=== PATIENT | male | born 1955 | race Caucasian/White ===

== ENCOUNTER 2019-02-08 14:52 | Emergency (ER) | payer MEDICARE, MEDICAID ==
[~2019-02-08] VITALS: Ht 172.7 cm; Wt 80.0 kg
[~2019-02-08 14:52] MED LIST: ADV50500 IH; ALBU18HF2 IH; CALC-97 PO; CYCL-394 PO; DIT5T PO; FLUT16SP9; HYDR-3686 PO; HYDR20OI TP; MULT1TAB74 PO; OMEP-84 PO; VITC500T PO
[2019-02-08] MEDS ORDERED: acetaminophen 325mg tablet PO ONE (15:00)
[2019-02-08] MEDS ORDERED: CefTRIAXone 2gm/D5W 50ml 50 ML IV ONE (15:25)
[2019-02-08] MEDS ORDERED: normal saline 1000ML IV soln IV ONE (15:25)
[2019-02-08 15:33] LABS: BASOPHILS % (AUTO) 0.5 % (0-1); EOSINOPHILS % (AUTO) 0.4 % (0-6); HEMOGLOBIN 13.8 g/dl (14.0-17.9); LYMPHOCYTES # (AUTO) 0.8 X10'3 (1.1-4.8); LYMPHOCYTES % (AUTO) 10.5 % (21-51); MEAN CORPUSCULAR HEMOGLOBIN 33.3 PG (27.0-31.0); MEAN CORPUSCULAR HGB CONC 34.5 g/dL (33.0-36.5); MEAN CORPUSCULAR VOLUME 96.5 FL (78-98); MEAN PLATELET VOLUME 8.7 FL (7.4-10.4); MONOCYTES # (AUTO) 0.7 X10'3 (0-0.9); MONOCYTES % (AUTO) 9.1 % (2-12); NEUTROPHILS # (AUTO) 5.7 X10'3 (1.8-7.7); NEUTROPHILS % (AUTO) 79.5 % (42-75); PLATELET COUNT 200 X10'3 (140-440); RED BLOOD COUNT 4.14 X10'6 (4.70-6.10); RED CELL DISTRIBUTION WIDTH 13.3 % (11.5-14.5); WHITE BLOOD COUNT 7.2 X10'3 (4.5-11.0)
--- NOTE | 2019-02-08 15:36 | NUR ---
friend contact Cathy cell [phone], home [phone]
[2019-02-08 15:45] LABS: ALANINE AMINOTRANSFERASE 105 U/L (12-78); ALBUMIN 2.8 G/DL (3.4-5.0); ALBUMIN/GLOBULIN RATIO 0.6 (1.1-1.5); ALKALINE PHOSPHATASE 120 IU/L (46-116); ANION GAP 6 (8-16); ASPARTATE AMINO TRANSFERASE 824 U/L (10-37); BILIRUBIN,TOTAL 0.4 MG/DL (0.1-1.0); BLOOD UREA NITROGEN 14 MG/DL (7-18); BUN/CREATININE RATIO 13.1 (5.4-32.0); CALCIUM 8.7 MG/DL (8.5-10.1); CHLORIDE 97 MMOL/L (99-107); CREATININE 1.07 MG/DL (0.60-1.10); GLUCOSE 115 MG/DL (70-104); POTASSIUM 3.2 MMOL/L (3.5-5.1); SODIUM 131 MMOL/L (135-145); TOTAL CARBON DIOXIDE 28.1 MMOL/L (24-32); TOTAL PROTEIN 7.3 G/DL (6.4-8.2); eGFR 70 ML/MIN
[2019-02-08 15:54] LABS: PARTIAL THROMBOPLASTIN TIME 33 SECONDS (22-32)
[2019-02-08 16:11] VITALS: BP 116/70
[2019-02-08] MEDS ORDERED: potassium chloride 8mEq ER tablet PO STA (16:56)
[2019-02-08] MEDS ORDERED: CEPH-572 PO (17:06)
[2019-02-08] MEDS ORDERED: SULF1TAB49 PO (17:06)
[2019-02-08] MEDS ORDERED: sulfamethoxazole/trimethoprim DS (800/160mg) tablet PO ONE (17:15)
== END 2019-02-08 17:48 | disposition home or self-care (01) ==
LOC: ER 14:53
DX: L03.116 Cellulitis of left lower limb (principal); I87.2 Venous insufficiency (chronic) (peripheral); R50.9 Fever, unspecified; F10.20 Alcohol dependence, uncomplicated; J44.9 Chronic obstructive pulmonary disease, unspecified; G89.29 Other chronic pain; Z88.6 Allergy status to analgesic agent; Z79.899 Other long term (current) drug therapy; Y90.9 Presence of alcohol in blood, level not specified
CPT/HCPCS: 36415; 71045; 80053; 83605; 84145; 85025; 85610; 85730; 87040; 96365; 99284; J0696; J7030

== ENCOUNTER 2019-07-01 10:23 | Day surgery (SDC) | payer MEDICARE, MEDICAID ==
[2019-07-01] VITALS (10 sets, daily range): BP systolic 134–150; BP diastolic 77–92
[~2019-07-01] VITALS: Ht 172.7 cm; Wt 79.5 kg
[2019-07-01] MEDS ORDERED: MIDAZolam 5mg/5ml vial ONE (11:42)
[2019-07-01] MEDS ORDERED: LIDOcaine Viscous 15ml cup ONE (11:42)
[2019-07-01] MEDS ORDERED: glucagon, human recombinant 1mg kit ONE (11:42)
[2019-07-01] MEDS ORDERED: fentaNYL/PF 50MCG/1 ML 2ML syringe ONE (11:42)
[2019-07-01] MEDS ORDERED: iohexol 300 MG/1 ML 50ml polymer ONE (11:43)
== END 2019-07-01 13:58 | disposition home or self-care (01) ==
LOC: GI LAB 10:23
PROVIDERS: ATTEND Internal Medicine Gastroenterology
DX: Z46.59 Encounter for fitting and adjustment of other gastrointestinal appliance and device (principal); K83.8 Other specified diseases of biliary tract
CPT/HCPCS: 43264; C1773; G0500; J1610; J2250; J3010; J7040; Q9967; 99153; A4620

== ENCOUNTER → 2020-03-20 | Emergency (ER) | payer MEDICARE, MEDICAID ==
[~2020-03-20] VITALS: Ht 175.3 cm; Wt 79.5 kg
[~2020-03-20] MED LIST changes: -CALC-97 PO; +CLIN-97 PO; -HYDR-3686 PO; -MULT1TAB74 PO; -VITC500T PO; +clindamycin phosphate 150mg/ml inj. IM ONE
[2020-03-20 17:29] VITALS: BP 137/81
== END | disposition home or self-care (01) ==
LOC: ER 16:34
DX: L03.116 Cellulitis of left lower limb (principal); J44.9 Chronic obstructive pulmonary disease, unspecified; G89.29 Other chronic pain; Z72.89 Other problems related to lifestyle; Z88.8 Allergy status to other drugs, medicaments and biological substances; Z79.899 Other long term (current) drug therapy
CPT/HCPCS: 96372; 99283; J3490

== ENCOUNTER 2021-11-22 05:06 | Emergency (ER) | payer MEDICARE, MEDICAID ==
[~2021-11-22] VITALS: Ht 175.3 cm; Wt 80.9 kg
[~2021-11-22 05:06] MED LIST changes: -clindamycin phosphate 150mg/ml inj. IM ONE
[2021-11-22 05:13] VITALS: BP 163/85
[2021-11-22] MEDS ORDERED: DOXYCYCLINE 100MG CAPSULE PO STA (05:29)
[2021-11-22] MEDS ORDERED: cephalexin 250mg capsule PO ONE (05:30)
[2021-11-22] MEDS ORDERED: ondansetron 4mg rapidly disintigrating tab PO ONE (05:30)
[2021-11-22] MEDS ORDERED: DOXY100C76 PO (05:33)
[2021-11-22] MEDS ORDERED: CEPH250T PO (05:33)
[2021-11-22] MEDS ORDERED: DOXY100C77 PO (05:34)
== END 2021-11-22 05:40 | disposition home or self-care (01) ==
LOC: ER 05:07
DX: G89.29 Other chronic pain (principal); L03.116 Cellulitis of left lower limb; M54.9 Dorsalgia, unspecified; Z88.8 Allergy status to other drugs, medicaments and biological substances; Z79.899 Other long term (current) drug therapy
CPT/HCPCS: 99284

== ENCOUNTER 2021-11-30 05:54 | Emergency (ER) | payer MEDICARE, MEDICAID ==
[~2021-11-30] VITALS: Ht 175.3 cm; Wt 79.5 kg
[~2021-11-30 05:54] MED LIST changes: +CEPH250T PO; +DOXY100C76 PO; +DOXY100C77 PO
--- NOTE | 2021-11-30 08:10 | NUR ---
pt reports that he is out of abx but his leg is still red and painful.
[2021-11-30 09:05] VITALS: BP 146/82
--- NOTE | 2021-11-30 09:05 | NUR ---
compression stockings provided for pt per dr. shahid mckeon.
== END 2021-11-30 09:07 | disposition home or self-care (01) ==
LOC: ER 05:54
DX: L03.116 Cellulitis of left lower limb (principal); M79.662 Pain in left lower leg; J44.9 Chronic obstructive pulmonary disease, unspecified; G89.29 Other chronic pain; Z72.89 Other problems related to lifestyle; Z79.2 Long term (current) use of antibiotics; Z79.899 Other long term (current) drug therapy
CPT/HCPCS: 99281